=== PATIENT | female | born 1955 | race Caucasian/White ===

== ENCOUNTER 2018-04-17 23:43 | Emergency (ER) | payer BC, MEDICARE ==
[~2018-04-17] VITALS: Ht 167.6 cm; Wt 61.2 kg
[2018-04-18 00:25] VITALS: BP 113/76
[2018-04-18] MEDS ORDERED: Norco 5mg/325mg tab ORAL ONE (00:30)
[2018-04-18] MEDS ORDERED: HYDROCODON-ACE1 EA15 ORAL (00:39)
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
[2018-04-18 00:42] VITALS: BP 122/86
== END 2018-04-18 00:45 | disposition home or self-care (01) ==
LOC: EMR 04-18 00:45
DX: S16.1XXA Strain of muscle, fascia and tendon at neck level, initial encounter (principal); V43.52XA Car driver injured in collision with other type car in traffic accident, initial encounter; Y92.488 Other paved roadways as the place of occurrence of the external cause; F17.200 Nicotine dependence, unspecified, uncomplicated; R51 Headache; M25.512 Pain in left shoulder
CPT/HCPCS: 99282